=== PATIENT | male | born 1960 | race Asian ===

== ENCOUNTER 2020-04-14 08:11 | Day surgery (SDC) | payer OTHER | END 2020-04-14 10:08 | disposition home or self-care (01) | LOC: OR 08:11 | PROC: 3E0T3BZ Introduction of Anesthetic Agent into Peripheral Nerves and Plexi, Percutaneous Approach (ICD-10-PCS; principal; 2020-04-14) | PROC: 3E0T33Z Introduction of Anti-inflammatory into Peripheral Nerves and Plexi, Percutaneous Approach (ICD-10-PCS; 2020-04-14) | DX: M47.816 Spondylosis without myelopathy or radiculopathy, lumbar region (principal) | CPT/HCPCS: J1100; J2001 ==

== ENCOUNTER 2020-04-28 09:07 | Day surgery (SDC) | payer OTHER | END 2020-04-28 11:08 | disposition home or self-care (01) | LOC: OR 09:07 | PROC: 3E0T3BZ Introduction of Anesthetic Agent into Peripheral Nerves and Plexi, Percutaneous Approach (ICD-10-PCS; principal; 2020-04-28) | PROC: 3E0T33Z Introduction of Anti-inflammatory into Peripheral Nerves and Plexi, Percutaneous Approach (ICD-10-PCS; 2020-04-28) | DX: M47.816 Spondylosis without myelopathy or radiculopathy, lumbar region (principal) | CPT/HCPCS: J1100; J2001 ==